=== PATIENT | male | born 1960 | race Caucasian/White ===

== ENCOUNTER 2020-06-16 01:00 | Outpatient (CLI) | payer BC, SELFPAY ==
[2020-06-16 19:19] LABS: SARS-CoV-2 RNA PCR Negative
== END 2020-06-16 01:01 | disposition home or self-care (01) ==
LOC: ANHCOVIDDT 01:00
PROVIDERS: PCP Internal Medicine; Visit Provider Surgery
DX: Z01.812 Encounter for preprocedural laboratory examination (principal); Z11.59 Encounter for screening for other viral diseases
CPT/HCPCS: 87635; C9803; U0003

== ENCOUNTER 2020-06-16 08:48 | Outpatient (CLI) | payer BC, SELFPAY ==
--- NOTE | 2020-06-16 08:50 | ECG_ITS ---
Measurements Intervals [place] Rate: 66 P: 52 MO: 210 QRS: 66 QRSD: 97 T: 47 QT: 379 QTc: 398 Interpretive Statements SINUS RHYTHM WITH FIRST DEGREE AV BLOCK DELAYED PRECORDIAL R/S TRANSITION PEAKED T WAVES- CONSIDER HYPERKALEMIA OR ISCHEMIA ABNORMAL ECG Electronically Signed On 06-16-2020 9:04:39 CDT by Travis Jean D.O.
== END 2020-06-16 08:49 | disposition home or self-care (01) ==
PROVIDERS: Visit Provider Surgery
DX: I10 Essential (primary) hypertension (principal); I44.0 Atrioventricular block, first degree
CPT/HCPCS: 93005

== ENCOUNTER 2020-06-18 01:25 | Day surgery (SDC) | payer BC, SELFPAY ==
[2020-06-01 17:39] VITALS: BMI 29.0
[2020-06-18 12:02] VITALS: BP 140/85; PULSE 70; RESP 16; TEMP 36.4; O2SAT 100
[2020-06-18] MEDS: LACTATED RINGERS 1,000 ML 30 ML IV CONT (12:25)
--- NOTE | 2020-06-18 13:12 | WPDHPUPDATE1 ---
History and Physical Update Update Date/Time: 06/18/20 13:12 History and Physical has been reviewed, including an updated exam of the patient. There are NO changes in the patient's condition. Risks, benefits, and alternatives have been discussed and questions answered. Patient agrees to proceed with procedure.
[2020-06-18] MEDS: LIDO 1%/EPINEPHRINE 1:100,000 20 ML VIAL 10 ML INFILTRATE (13:22)
--- NOTE | 2020-06-18 13:23 | WPDANESEPPF ---
Anes - Initial Pre Proc Eval Procedure: Operation Date: 06/18/20 14:00 Proposed Procedures p Excision Left Upper Back Mass - Geraldo Valentine DO Date/Time: 06/18/20 13:23 Surgeon: Geraldo Valentine DO Pre Op Diagnosis: 3 CM Left Upper Back Mass Patient Data Age: 60 Gender: M Height: 6 ft 1 in Weight: 101.6 kg Last Vital Signs Temp 97.5 F L 06/18/20 12:02 Pulse 70 06/18/20 12:02 Resp 16 06/18/20 12:02 BP 140/85 06/18/20 12:02 Pulse Ox 100 06/18/20 12:02 Allergies Allergy/AdvReac Type Severity Reaction Status Date / Time No Known Allergies Allergy Verified 06/01/20 17:39 Home Medications Medication Instructions Recorded Confirmed Type ezetimibe 10 mg tablet 10 mg PO DAILY 05/27/20 06/01/20 History losartan 100 mg tablet 100 mg PO DAILY 05/27/20 06/01/20 History metoprolol tartrate 25 mg tablet 25 mg PO DAILY 05/27/20 06/01/20 History rosuvastatin 40 mg tablet 40 mg PO DAILY 05/27/20 06/01/20 History Patient hx anesthesia problems: none Family hx anesthesia problems: none PMFSH Past Medical History Medical History (Updated 06/16/20 @ 12:44 by Ashok Luciano DO) Heart attack 1992 Heart disease Hernia HTN (hypertension) Hyperlipidemia Surgical History Surgical History H/O heart surgery 1992 S/P hernia surgery 3-4 years ago Social History Social History Smoking packs per day: 1 Smoking cigarettes per day: 20.0 Years smoked: 25 Smoking pack-years: 25.00 Smoking status: Former smoker Tobacco type: cigarettes Smoking end date: 04/19/05 Alcohol intake: former Substance use: never Substance use type: does not use Last use: 15 YEARS AGO Living arrangements: with family Additional occupation/education 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 [employer] Gender identity (if verbalized by the patient): Male Spiritual care concerns: No Anes - Eval Final PreProcedure Day of Procedure 06/18/20 13:23 Patient weight: overweight Heart: regular rate and rhythm Lungs: clear to auscultation Airway: Mallampati scale class II Neurological: alert and oriented Last oral intake: >/= 8 hours ASA classification: III Emergent: no Anesthetic plan: proceed Anesthesia type and monitoring: general GIVS and standard monitoring Informed Consent: The patient's anesthetic plan and its attendant risks and benefits were discussed with the patient/family/POA. Questions were solicited and answers provided to the satisfaction of the patient/family/POA.
[2020-06-18] MEDS: ceFAZolin 2 GM/D5W 50 ML 2 GM/50 ML BAG IVPB (13:27)
[2020-06-18] MEDS: BACITRACIN OINTMENT 15 GM TUBE 1 APPLIC TOPICAL (13:48)
--- NOTE | 2020-06-18 13:53 | P.OP_ITS ---
Procedure Note - Detailed Date of procedure: 06/18/20 Pre-op diagnosis: 3 CM Left Upper Back Mass Post-op diagnosis: same Procedure performed: Excision of 3 cm left upper back mass Description of procedure: * procedure as well as risks, benefits, and alternatives were discussed with the patient. Written consent was obtained and placed in chart prior to procedure. Patient was brought back to surgical suite. He was placed in right lateral decubitus position. Time-out was done to confirm patient and procedure. IV sedation was then administered by the Anesthesia Department. His left upper back area was prepped and draped in sterile fashion using chlorhexidine prep. 1% lidocaine with epinephrine was infiltrated locally around the back mass. An elliptical incision was made using a 15 blade scalpel to encompass the entire mass. Electrocautery was used for hemostasis. The mass was sharply excised completely and was sent to the lab for pathology. The wound bed was then irrigated with sterile saline. Hemostasis was achieved with electrocautery. The skin edges were then reapproximated using 3 0 nylon vertical mattress interrupted sutures. Bacitracin ointment was applied followed by 4 x 4 gauze and Medipore tape. The patient was then awakened from anesthesia and transferred to recovery. Anesthesia: MAC and local ( 1% lidocaine with epinephrine) Surgeon: Geraldo Valentine DO Estimated blood loss (mL): 5 Pathology: yes Complications: No immediate complications Condition: stable Disposition: same day Findings: Mr. Theodore presents for excision of a left upper back mass. In 10/2019, patient developed a small pimple-like mass on his shoulder. Over the months, the area has increased in size, surrounding redness, and tenderness, and he is able to express fluid from the are. He presented to urgent care and was given Bactrim DS x10 days. He was found to have a 3 cm back mass that had previously been infected and is most likely an infected ruptured inclusion cyst. Discussions were made with the patient about treatment options and decision was made to proceed with excision of 3 cm back mass. The left upper back mass was excised completely. There was an ulcer at the surface of the skin, and there appeared to be a cystic structure just deep to this. This was containing debris consistent with an inclusion cyst. The mass was completely excised and sent to the lab for pathology. The skin edges were then reapproximated with 3 0 nylon vertical mattress interrupted sutures.
[2020-06-18 14:00] VITALS: BP 108/67; PULSE 80; RESP 12; O2SAT 94
[2020-06-18] MEDS: ONDANSETRON INJ 4 MG/2 ML VIAL IV PUSH (14:09)
[2020-06-18 14:30] VITALS: BP 126/74; PULSE 62; RESP 14
[2020-06-18 15:00] VITALS: BP 125/68; PULSE 52; RESP 14
[2020-06-18 15:20] VITALS: BP 143/77; PULSE 58; RESP 14
== END 2020-06-18 15:30 | disposition home or self-care (01) ==
PROVIDERS: Visit Provider Surgery
PROC: (CPT 11403; principal; 2020-06-18 14:00)
DX: L72.0 Epidermal cyst (principal); I11.9 Hypertensive heart disease without heart failure; E78.5 Hyperlipidemia, unspecified; I25.2 Old myocardial infarction; Z87.891 Personal history of nicotine dependence
CPT/HCPCS: 11403; 88304; A9270; J0690; J2250; J2405; J2704; J3010; J7120